=== PATIENT | female | born 2000 | race Caucasian/White ===

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

== ENCOUNTER 2022-02-20 06:38 | Emergency (ER) | payer SELFPAY ==
[~2022-02-20] VITALS: Ht 162.6 cm; Wt 62.0 kg
[~2022-02-20 06:38] MED LIST: AUGMENTIN 875-1 EACH PO; KEPPRA1000 MG PO; LAMICTAL XR250 MG PO; NORCO 5-325 TA1 EACH PO; ONDANSETRON ODT4 MG SL
--- NOTE | 2022-02-20 14:47 | NUR ---
CONTINUED GIVING SUPPORT AND COMFORT TO FAMILY. PT TO TRANSFER TO [facility] BY [employer]. ASSISTED FAMILY OBTAINING [employer] INS. ON LINE TO PROVIDE COVERAGE. OBTAINED VISITATION POLICY FROM [facility] FOR FAMILY. GAVE [employer] PACK LIST, STAYED WITH FAMILY AND GUIDED THEM OUT PT LEFT. WILL FOLLOW NEEDED
--- NOTE | 2022-02-21 11:43 | EKG ---
[facility] [address] [place] [address] Signed Sinus tachycardia Rightward axis ST \T\ T wave abnormality, consider inferior ischemia Abnormal ECG No previous ECGs available Confirmed by MARY LUCIANO MD ([id number] on 02/21/2022 11:43:08 AM Electronically Signed By: MARY LUCIANO MD 02/21/22 1143 PATIENT NAME: [id number] Electrocardiogram DATE OF : [birth year] PHYSICIAN: MARY LUCIANO MD REPORT #: [id number] REPORT IS CONFIDENTIAL AND NOT TO BE RELEASED WITHOUT AUTHORIZATION
== END 2022-02-20 11:49 | disposition short-term general hospital (02) ==
LOC: ED 06:38 → EDBD 06:39 → ED 06:39
DX: I46.9 Cardiac arrest, cause unspecified (principal); G40.909 Epilepsy, unspecified, not intractable, without status epilepticus; Z20.822 Contact with and (suspected) exposure to COVID-19
CPT/HCPCS: 36415; 36556; 36600; 51702; 70450; 71045; 80053; 80201; 81001; 82803; 83735; 84484; 84703; 85025; 85379; 85610; 85730; 87088; 93005; 93010; 94002; 94799; 99285-25; C9803; G0480; J0171; J1953; J2310; J2543; J2704; J3010; J7030; J7070; J7121; U0003